=== PATIENT | male | born 1945 | race Caucasian/White ===

== ENCOUNTER 2021-07-05 22:37 | Emergency (ER) | payer OTHER ==
[2021-07-05 22:41] VITALS: PULSE 100; BMI 23.0
[2021-07-05] MEDS ORDERED: DIPHTH,PERTUSS(ACELL),TET 0.5 ML DISP.SYRIN IM ONE ×2 (23:34→23:48)
[2021-07-05 23:44] LABS: HEMATOCRIT 39.4 % (35.4-49); HEMOGLOBIN 13.1 GM/dL (11.7-16.9); MCH 30.9 pg (25.7-33.7); MCHC 33.2 g/dl (32.0-35.9); MEAN CELL VOLUME 93.1 fl (80-96); MEAN PLT VOLUME 9.8 fl (7.5-11.1); PLATELET COUNT 196 10^3/uL (134-434); RBC 4.23 M/mm3 (4.00-5.60); RDW 13.8 % (11.9-15.9); WHITE BLOOD COUNT 22.9 K/mm3 (4.0-10.0)
[2021-07-05 23:52] LABS: INR 0.93 (0.83-1.09); PROTHROMBIN TIME (PATIENT) 11.4 SEC (9.7-13.0)
[2021-07-05 23:54] LABS: ACTIVATED PTT 27.9 SECONDS (25.2-36.5)
[2021-07-06 00:05] LABS: CALCIUM 9.3 mg/dL (8.5-10.1)
[2021-07-06 00:06] LABS: ALBUMIN 3.6 g/dl (3.4-5.0); BLOOD UREA NITROGEN 30.8 mg/dL (7-18)
[2021-07-06 00:07] VITALS: BP 130/84; TEMP 97
[2021-07-06 00:09] LABS: CREATININE 1.3 mg/dL (0.55-1.3)
[2021-07-06 00:10] LABS: BILIRUBIN,TOTAL 0.3 mg/dL (0.2-1); TOT PROT 7.2 g/dl (6.4-8.2)
[2021-07-06 01:16] LABS: ANISOCYTOSIS 2+; MACROCYTOSIS 0; PLATELET ESTIMATE NORMAL; ROULEAU 1+
== END 2021-07-06 00:13 | disposition short-term general hospital (02) ==
LOC: JER 22:37
PROC: 3E0234Z Introduction of Serum, Toxoid and Vaccine into Muscle, Percutaneous Approach (ICD-10-PCS; principal; 2021-07-05)
DX: I21.3 ST elevation (STEMI) myocardial infarction of unspecified site (principal); S42.009A Fracture of unspecified part of unspecified clavicle, initial encounter for closed fracture; W19.XXXA Unspecified fall, initial encounter; Y92.9 Unspecified place or not applicable
CPT/HCPCS: 36415; 70450-TC; 71045-TC-FY; 72125-TC; 80053; 82550; 82553; 84484; 85025; 85610; 85730; 86850; 86900; 86901; 90471; 90715; 93005; 93010; 99284-25